=== PATIENT | male | born 1970 | race Caucasian/White ===

== ENCOUNTER → 2022-12-14 19:40 | Outpatient (CLI) | payer OTHER, SELFPAY ==
--- NOTE | 2022-12-14 19:42 | DI.MRI.S_ITS ---
PROCEDURE: MR LUMBAR SPINE WO CON INDICATIONS: Spinal stenosis, lumbar region TECHNIQUE: Noncontrast sagittal T1 spin echo and T2 fast echo, sagittal STIR, and T2 fast spin echo through the lumbar spine. In cases with scoliosis, additional coronal T2 fast spin echo may be performed. COMPARISON: [facility] Outside Film, MR, MR LUMBAR SPINE WITHOUT CONTRAST, 08/13/2018, 13:00. FINDINGS: Image quality: Excellent. Alignment and Curvature: Trace retrolisthesis of L2 on L3. Trace retrolisthesis of L5 on S1. Bone Marrow: Marrow is of normal overall signal. Discogenic endplate change at multiple levels, most notably L4-L5. No acute vertebral body compression fractures. Spinal Cord: Conus medullaris terminates at the L1-L2 level. Visualized cord demonstrates normal signal and size. Paraspinous Soft Tissues: No paravertebral masses. T12-L1: Disc bulge. No canal stenosis or foraminal stenosis. L1-L2: Unchanged. Disc bulge. Mild facet hypertrophy. No canal stenosis or significant foraminal stenosis. L2-L3: Unchanged. Mild retrolisthesis of L2 on L3. Facet hypertrophy. No canal stenosis. Moderate bilateral foraminal narrowing with mild flattening deformity on the exiting bilateral L2 nerve roots. L3-L4: Interval progression. Diffuse disc bulge with mild superimposed left posterior disc protrusion. The superimposed disc protrusion has increased since the previous study, and posteriorly deviates the left L4 nerve root in the left lateral recess. There is mild central canal stenosis. Foraminal disc bulge on the left results in moderate to severe left foraminal narrowing with a degree of left foraminal L4 nerve root impingement. The appearance of the foramen is similar. L4-L5: Not significantly changed. Diffuse disc bulge, eccentric to the right. Mild posterior deviation of the right L5 nerve root in the right lateral recess. Facet hypertrophy. [id number] central canal stenosis. Severe right foraminal narrowing with a degree of right foraminal L4 nerve root impingement. Moderate to severe left foraminal narrowing with a degree of left foraminal L4 nerve root impingement. L5-S1: Disc bulge. Very mild facet hypertrophy. No central canal stenosis. Unchanged moderate to severe right foraminal narrowing and moderate left foraminal narrowing. There is mild impingement on the exiting right L5 nerve root and flattening deformity on the exiting left L5 nerve root. IMPRESSION: 1. There is underlying multilevel facet arthropathy. 2. Findings have progressed at L3-L4. At this level, there is mild central canal stenosis. There has been interval increase in the size of a superimposed left posterior disc protrusion. This posteriorly deviates the left L4 nerve root in the left lateral recess. 3. Stable findings at L4-L5. There is [id number] canal stenosis. 4. Multilevel foraminal narrowing as described above. This includes moderate bilateral foraminal narrowing at L2-L3, severe left foraminal narrowing at L3-L4, severe right foraminal narrowing and moderate to severe left foraminal narrowing at L4-L5, and moderate to severe right foraminal narrowing at L5-S1. Dictated by: Rajesh Mesa M.D. on 12/19/2022 at 14:45 Approved by: Rajesh Mesa M.D. on 12/19/2022 at 14:58
== END ==
PROVIDERS: Referring Provider Orthopaedic Surgery Orthopaedic Surgery of the Spine; Visit Provider Orthopaedic Surgery Orthopaedic Surgery of the Spine
DX: M48.062 Spinal stenosis, lumbar region with neurogenic claudication (principal); M48.07 Spinal stenosis, lumbosacral region; M47.816 Spondylosis without myelopathy or radiculopathy, lumbar region
CPT/HCPCS: 72148